=== PATIENT | female | born 1935 | race Caucasian/White ===

== ENCOUNTER → 2023-07-06 12:55 | Outpatient (REF) | payer MEDICARE, OTHER, SELFPAY | LOC: HWRAD 12:55 | PROVIDERS: ATTENDING PHYSICIAN Student in an Organized Health Care Education/Training Program | DX: R58 Hemorrhage, not elsewhere classified (principal) | CPT/HCPCS: 76830; 76856 ==

== ENCOUNTER → 2023-08-16 12:54 | Outpatient (REF) | payer MEDICARE, OTHER, SELFPAY | LOC: HWRAD 12:54 | PROVIDERS: ATTENDING PHYSICIAN Internal Medicine Nephrology; FAMILY PHYSICIAN Student in an Organized Health Care Education/Training Program; REFERRING PHYSICIAN Urology | DX: R01.1 Cardiac murmur, unspecified (principal); R31.29 Other microscopic hematuria | CPT/HCPCS: 76770; 93306 ==

== ENCOUNTER → 2023-09-30 15:26 | Outpatient (REF) | payer MEDICARE, OTHER, SELFPAY ==
[2023-09-30 16:35] LABS: HDL Cholesterol 42 mg/dl; LDL Cholesterol, Calculated 126 mg/dl; Total Cholesterol 228 mg/dl (50-199); Triglyceride 301 mg/dl (10-149); Very Low Density Lipoprotein 60 mg/dl (0-30)
[2023-09-30 16:39] LABS: % Basophils 0.7 % (0-2); % Eosinophils 1.8 % (0-6); % Immature Granulocytes 0.7 % (0-0.5); % Lymphocytes 25.1 % (20.5-51.1); % Monocytes 8.7 % (1.7-9.3); Absolute Eosinophils 0.1 10^3/uL (0-0.7); Absolute Lymphocytes 1.4 10^3/uL (1.2-3.4); Absolute Monocytes 0.5 10^3/uL (0.1-0.6); Absolute Neutrophils 3.4 10^3/uL (1.4-6.5); Hematocrit 34.7 % (37.0-47.0); Hemoglobin 11.2 g/dL (12.0-16.0); Mean Corp Hgb Conc. 32.3 g/dL (33.0-37.0); Mean Corpuscular Hgb 29.6 pg (27.0-31.0); Mean Corpuscular Volume 91.6 fL (81.0-99.0); Mean Platelet Volume 9.9 fL (7.4-10.4); Nucleated Red Blood Cells % 0 %; Platelet Count 205 10^3/uL (130-400); Red Blood Cell Count 3.79 10^6/uL (4.20-5.40); Red Cell Dist. Width 12.9 % (11.5-14.5); White Blood Cell Count 5.4 10^3/uL (4.8-10.8)
== END ==
LOC: CLAB 15:26
PROVIDERS: ATTENDING PHYSICIAN Student in an Organized Health Care Education/Training Program
DX: E78.2 Mixed hyperlipidemia (principal); N18.31 Chronic kidney disease, stage 3a
CPT/HCPCS: 80061; 85025

== ENCOUNTER → 2024-02-08 08:37 | Outpatient (REF) | payer MEDICARE, OTHER, SELFPAY ==
[2024-02-08 09:23] LABS: % Basophils 0.8 % (0-2); % Eosinophils 2.1 % (0-6); % Immature Granulocytes 0.8 % (0-0.5); % Lymphocytes 31.4 % (20.5-51.1); % Monocytes 8.9 % (1.7-9.3); Absolute Eosinophils 0.1 10^3/uL (0-0.7); Absolute Lymphocytes 1.6 10^3/uL (1.2-3.4); Absolute Monocytes 0.5 10^3/uL (0.1-0.6); Absolute Neutrophils 2.9 10^3/uL (1.4-6.5); Hematocrit 31.3 % (37.0-47.0); Hemoglobin 10.9 g/dL (12.0-16.0); Mean Corp Hgb Conc. 34.8 g/dL (33.0-37.0); Mean Corpuscular Hgb 30.4 pg (27.0-31.0); Mean Corpuscular Volume 87.4 fL (81.0-99.0); Mean Platelet Volume 9.3 fL (7.4-10.4); Nucleated Red Blood Cells % 0 %; Platelet Count 188 10^3/uL (130-400); Red Blood Cell Count 3.58 10^6/uL (4.20-5.40); Red Cell Dist. Width 12.7 % (11.5-14.5); White Blood Cell Count 5.2 10^3/uL (4.8-10.8)
[2024-02-08 10:33] LABS: ALT (SGPT) 19 U/L (0-35); AST (SGOT) 29 U/L (14-36); Albumin 4.2 g/dl (3.5-5.0); Alkaline Phosphatase 83 U/L (38-126); Blood Urea Nitrogen 26 mg/dl (7-17); Carbon Dioxide 27 mmol/L (22-30); Chloride 103 mmol/L (98-107); Glucose 95 mg/dl (70-99); Potassium 4.2 mmol/L (3.5-5.1); Sodium 143 mmol/L (135-145); Total Bilirubin 0.7 mg/dl (0.2-1.3); Total Protein 6.5 g/dl (6.3-8.2); eGFR 36.41
== END ==
LOC: HWLAB 08:37
PROVIDERS: ATTENDING PHYSICIAN Student in an Organized Health Care Education/Training Program; REFERRING PHYSICIAN Internal Medicine Nephrology
DX: E78.2 Mixed hyperlipidemia (principal)
CPT/HCPCS: 36415; 80053; 85025

== ENCOUNTER → 2024-05-04 11:12 | Outpatient (REF) | payer MEDICARE, OTHER, SELFPAY ==
[2024-05-04 16:26] LABS: HDL Cholesterol 38 mg/dl; LDL Cholesterol, Calculated 93 mg/dl; Total Cholesterol 209 mg/dl (50-199); Triglyceride 390 mg/dl (10-149); Very Low Density Lipoprotein 78 mg/dl (0-30)
== END ==
LOC: HWLAB 11:12
PROVIDERS: ATTENDING PHYSICIAN Student in an Organized Health Care Education/Training Program
DX: E78.2 Mixed hyperlipidemia (principal)
CPT/HCPCS: 36415; 80061

== ENCOUNTER → 2024-08-02 10:00 | Outpatient (REF) | payer MEDICARE, OTHER, SELFPAY ==
[2024-08-02 11:19] LABS: Hematocrit 31.6 % (37.0-47.0)
[2024-08-02 11:58] LABS: Albumin 3.9 g/dl (3.5-5.0); Blood Urea Nitrogen 27 mg/dl (7-17); Calcium 9.2 mg/dl (8.4-10.2); Carbon Dioxide 29 mmol/L (22-30); Chloride 101 mmol/L (98-107); Glucose 96 mg/dl (70-99); Iron 102 ug/dl (37-170); Phosphorus 3.8 mg/dl (2.5-4.5); Potassium 4.3 mmol/L (3.5-5.1); Sodium 137 mmol/L (135-145); Uric Acid 6.6 mg/dl (2.5-6.2); eGFR 43.81
[2024-08-02 12:06] LABS: Percent Saturation 42 % (20-50); Total Iron Binding Capacity 238 ug/dl (265-497)
[2024-08-02 12:41] LABS: Microalbumin, Random Urine 1.2 mg/dl (0.6-1.7)
[2024-08-02 12:49] LABS: Microalbumin/creatinine Ratio 15.5 mg/g; Protein/creatinine Ratio 0.1; Urine Protein 7 mg/dl
[2024-08-03 13:59] LABS: Erythropoietin (EPO) 15 mU/mL (4-27)
== END ==
LOC: HWLAB 10:00
PROVIDERS: ATTENDING PHYSICIAN Specialist; FAMILY PHYSICIAN Student in an Organized Health Care Education/Training Program
DX: N18.32 Chronic kidney disease, stage 3b (principal); D63.1 Anemia in chronic kidney disease
CPT/HCPCS: 36415; 80069; 82043; 82570; 82668; 82728; 83540; 83550; 84156; 84550; 85014; 85018